=== PATIENT | male | born 1985 | race Caucasian/White ===

== ENCOUNTER 2017-03-24 22:54 | Emergency (ER) | payer OTHER | END 2017-03-25 04:03 | disposition home or self-care (01) | LOC: FER 22:54 | DX: S42.291A Other displaced fracture of upper end of right humerus, initial encounter for closed fracture (principal); S92.251A Displaced fracture of navicular [scaphoid] of right foot, initial encounter for closed fracture; M25.532 Pain in left wrist; F17.210 Nicotine dependence, cigarettes, uncomplicated; V86.59XA Driver of other special all-terrain or other off-road motor vehicle injured in nontraffic accident, initial encounter | CPT/HCPCS: 73030; 73110; 73610; J1170; J2405 ==

== ENCOUNTER 2021-01-28 18:21 | Emergency (ER) | payer OTHER ==
[2021-01-28 19:05] LABS: BASOPHIL 0.1 % (0-2); EOSINOPHIL 0.4 % (0-5); HCT 44.3 % (42.0-52.0); HGB 15.3 g/dl (13.2-18.0); LYMPHOCYTE 9.8 % (15-48); MCH 32.1 pg (25.0-31.0); MCHC 34.5 g/dL (32.0-36.0); MCV 93.1 fL (78.0-100.0); MONOCYTE 6.2 % (0-12); MPV 9.9 fL (6.0-9.5); NEUTROPHIL 83.1 % (41-80); NRBC 0; PLT 217 K/uL (150-400); RBC 4.76 M/uL (4.70-6.00); RDW 13.2 % (11.5-14.0); WBC 9.7 K/uL (4.0-10.5)
[2021-01-28 19:28] LABS: ALBUMIN 4.1 g/dL (3.4-5.0); ALKALINE PHOSHATASE 108 U/L (46-116); ALT 39 U/L (16-63); AST 25 U/L (15-37); BILIRUBIN - TOTAL 0.4 mg/dL (0.2-1.0); BUN 14 mg/dL (7-18); BUN/CREAT RATIO (CALC) 19.7 RATIO; CHLORIDE 106 mmol/L (98-107); CO2 (BICARBONATE) 29 mmol/L (21-32); CREATININE 0.71 mg/dL (0.67-1.17); GLOBULIN (CALCULATION) 3.2 g/dL; GLUCOSE 99 mg/dL (74-106); POTASSIUM 4.2 mmol/L (3.5-5.1); TOTAL PROTEIN 7.3 g/dL (6.4-8.2)
== END 2021-01-28 21:09 | disposition home or self-care (01) ==
LOC: FER 18:21
PROVIDERS: Emergency Medicine
DX: G40.409 Other generalized epilepsy and epileptic syndromes, not intractable, without status epilepticus (principal); S01.511A Laceration without foreign body of lip, initial encounter; S01.21XA Laceration without foreign body of nose, initial encounter; H91.92 Unspecified hearing loss, left ear; F17.200 Nicotine dependence, unspecified, uncomplicated; Z79.899 Other long term (current) drug therapy; W19.XXXA Unspecified fall, initial encounter; Z23 Encounter for immunization
CPT/HCPCS: 36415; 70450; 70486; 71045; 80053; 85025; 90471; 90715; 96365; G0480; J1953

== ENCOUNTER 2021-08-22 16:13 | Emergency (ER) | payer OTHER ==
[2021-08-22 17:24] LABS: BASOPHIL 0.6 % (0-2); EOSINOPHIL 0.9 % (0-5); HCT 47.3 % (42.0-52.0); HGB 15.7 g/dl (13.2-18.0); LYMPHOCYTE 14.1 % (15-48); MCH 32.2 pg (25.0-31.0); MCHC 33.2 g/dL (32.0-36.0); MCV 97.1 fL (78.0-100.0); MONOCYTE 7.7 % (0-12); MPV 10.7 fL (6.0-9.5); NEUTROPHIL 74.5 % (41-80); NRBC 0; PLT 264 K/uL (150-400); RBC 4.87 M/uL (4.70-6.00); RDW 12.7 % (11.5-14.0); WBC 14.7 K/uL (4.0-10.5)
[2021-08-22 17:37] LABS: BILIRUBIN - TOTAL 0.3 mg/dL (0.2-1.0); BUN/CREAT RATIO (CALC) 18.7 RATIO; CREATININE 0.91 mg/dL (0.67-1.17); GLOBULIN (CALCULATION) 3.3 g/dL; POTASSIUM 4.3 mmol/L (3.5-5.1); TOTAL PROTEIN 7.3 g/dL (6.4-8.2)
== END 2021-08-22 21:00 | disposition home or self-care (01) ==
LOC: FER 16:13
PROVIDERS: Internal Medicine
DX: G40.909 Epilepsy, unspecified, not intractable, without status epilepticus (principal); F17.210 Nicotine dependence, cigarettes, uncomplicated
CPT/HCPCS: 36415; 70450; 71045; 80053; 85025; J1953

== ENCOUNTER → 2022-05-23 | Day surgery (SDC) | payer OTHER ==
[~2022-05-23] VITALS: Ht 170.2 cm; Wt 68.0 kg
[~2022-05-23] MED LIST: DIVALPROEX SOD500 MG PO; TOPIRAMATE50 MG PO
[2022-05-23 07:03] LABS: BASOPHIL 0.5 % (0-2); HCT 43.3 % (42.0-52.0); HGB 14.6 g/dl (13.2-18.0); LYMPHOCYTE 34.7 % (15-48); MCH 33.4 pg (25.0-31.0); MCHC 33.7 g/dL (32.0-36.0); MCV 99.1 fL (78.0-100.0); MONOCYTE 8.6 % (0-12); MPV 10.3 fL (6.0-9.5); NEUTROPHIL 53.2 % (41-80); NRBC 0; PLT 166 K/uL (150-400); RBC 4.37 M/uL (4.70-6.00); RDW 12.7 % (11.5-14.0); WBC 8.2 K/uL (4.0-10.5)
== END | disposition home or self-care (01) ==
LOC: FAS 06:27
PROVIDERS: Oral & Maxillofacial Surgery
DX: K01.1 Impacted teeth (principal); K09.9 Cyst of oral region, unspecified; G40.909 Epilepsy, unspecified, not intractable, without status epilepticus; F17.200 Nicotine dependence, unspecified, uncomplicated
CPT/HCPCS: 41826; D7230 ×2; 36415; 85025; J1100; J1885; J2250; J2405; J2704; J3010; J7120